=== PATIENT | male | born 1980 | race Caucasian/White ===

== ENCOUNTER 2017-04-12 10:15 | Emergency (ER) | payer OTHER ==
[2017-04-12 10:23] VITALS: BMI 27.8
[2017-04-12] MEDS ORDERED: ZOFRAN INJ 4 MG VIAL IVP ONE (10:26)
[2017-04-12] MEDS ORDERED: NS 1000 ML 1,000 ML IV ONE ×2 (10:26→11:57)
--- NOTE | 2017-04-12 10:28 | DR.N/VMALE ---
HPI - Time Seen Time seen: 10:30 - Primary Care Physician Primary Care Physician: NFD - HPI Comment HPI Comment: VOMITING DECREASE BUT DIARRHEA HAVE INCREASE. ABDOMINAL CRAMPING PRESENT. NO FEVER. MAY HAVE EATING FOOD THAT STARTED SYMTOMS. FEEL WEAK AND DIZZY CURRENTLY. - Complaints Chief Complaint Doctors Comments: N/V/D AND ABDOMINAL PAIN TIMES 3 DAYS. Chief Complaint:: PT C/O SEVERE DIARRHEA WITH NAUSEA AND VOMITTING THAT HAS BEEN GOING ON FOR 2-3 DAYS. PT'S STATES HE HAS WENT MULITPLE TIMES THIS AM ALREADY. - Reviewed Nurses Notes Reviewed: Yes - Source History Provided: Patient - Mode of Arrival Mode of Arrival: Ambulatory - Timing Onset of Chief Complaint: 04/09/17 - Context Onset: Spontaneous Recent: None History of: None - Quality Quality: Bilious - Associated Signs and Symptoms Abdominal Pain Quality: Cramping Abdominal Pain Location: Diffuse Symptoms: Abdominal Pain, Diarrhea, Anorexia PMH - PMH Past Medical History: No Past Surgical History: No - Family History History of Family Medical Conditions: No - Social History Does any household member use tobacco: No Alcohol Use: Rarely Do you use any recreational Drugs:: No Lives With: Family Lives Where: Home - infectious screening In the last 2 months have you had wt loss of >10#?: NO Have you had fever, night sweats or hemotysis?: No Have you traveled outside the country in the last 6 months?: No Isolation: Standard ROS - Review of Systems Constitutional: Weakness, Fatigue. negative: Chills, Fever Eyes: negative: Eye Pain, Discharge ENTM: No Symptoms Reported Respiratoy: No Symptoms Reported Cardiovascular: No Symptoms Reported Gastrointestinal/Abdominal: Abdominal Pain, Diarrhea, Nausea, Vomiting Genitourinary: negative: Dysuria, Frequency, Hematuria Neurological: Weakness Musculoskeletal: No Symptoms Reported Integumentary: No Symptoms Reported Hematologic/Lymphatic: No Symptoms Reported Endocrine: No Symptoms Reported All Other Systems: Reviewed and Negative PE - Vital Signs Vitals: Temperature 98.0 F Pulse Rate 115 Respiratory Rate 22 Blood Pressure [Left Arm] 130/64 Blood Pressure 153/97 O2 Sat by Pulse Oximetry 98 - General Limitations: No Limitations General Appearance: Alert - Head Head Exam: Normal Inspection - Eyes Eye exam: Normal Appearance - ENT ENT Exam: Normal External Ear Exam - Neck Neck Exam: Trachea Midline - Chest Chest Inspection: Symmetric Chest Wall Rise - Respiratory Respiratory Exam: Normal Lung Sounds Bilat Respiratory Exam: Bilateral Clear to Auscultation - Cardiovascular Cardiovascular Exam: Regular Rate, Normal Rhythm, Normal Heart Sounds - Abdominal Exam Abdominal Exam: Normal Bowel Sounds, Soft, Tenderness Abdominal Tenderness: Diffuse - Rectal Rectal Exam: Deferred - Exam: Male: Deferred - Extremities Extremities Exam: Normal Inspection - Back Back Exam: Normal Inspection - Neurologic Neurological Exam: Alert, Oriented X3 - Psychiatric Psychiatric Exam: Normal Affect, Normal Mood - Skin Skin Exam: Normal Color MDM - Additional Information Obtained Additional Information Obtained From: Family - Differential Diagnosis Differential Diagnosis: Considerations may Include:: Bowel Obstruction, Gastroenteritis, Pancreatitis, PUD, Urinary Tract Infection, Urolithiasis Course - Treatment Treatment: SEE ORDERS. IV FLUIDS AND IV PAIN MED AND IV ANTIBIOTICS IN ED. - Reevaluation 1st: Improved - Education/Counseling Education/Counseling: Patient, Family, Education Educated On: Treatment, Diagnosis, Needs for Follow Up ROR - Labs Reviewed Laboratory Results Reviewed?: Yes Result Diagrams: 04/12/17 10:40 04/12/17 10:40 Laboratory: 04/12/17 10:56 Stool - Final WBC 13.1 X10^3/uL (3.6-10.0) H 04/12/17 10:40 RBC 6.34 X10^6/uL (4.7-6.0) H 04/12/17 10:40 Hgb 18.1 g/dL (13.5-18.0) H 04/12/17 10:40 Hct 51.5 % (42.0-54.0) 04/12/17 10:40 MCV 81.3 fL (80.0-100.0) 04/12/17 10:40 MCH 28.6 pg (27.0-34.0) 04/12/17 10:40 MCHC 35.2 g/dL (33.0-35.0) H 04/12/17 10:40 RDW 14.4 % (11.6-16.5) 04/12/17 10:40 Plt Count 298 X10^3/uL (150.0-450.0) 04/12/17 10:40 MPV 8.4 fL (7.4-11.0) 04/12/17 10:40 Neut % 82.8 % (42.0-75.0) H 04/12/17 10:40 Lymph % 7.8 % (21.0-51.0) L 04/12/17 10:40 [place] % 6.7 % (0.0-13.0) 04/12/17 10:40 Eos % 2.4 % (0.9-2.9) 04/12/17 10:40 Baso % 0.3 % (0.2-1.0) 04/12/17 10:40 Neut # 10.9 x10^3/uL (2.2-4.8) H 04/12/17 10:40 Lymph # 1.0 X10^3/uL (1.3-2.9) L 04/12/17 10:40 [place] # 0.9 x10^3/uL (0.3-0.8) H 04/12/17 10:40 Eos # 0.3 x10^3/uL (0.0-0.2) H 04/12/17 10:40 Baso # 0.0 X10^3/uL (0.0-0.1) 04/12/17 10:40 Absolute Nucleated RBC 0.6 /100WBC 04/12/17 10:40 Sodium 136 mmol/L (136-145) 04/12/17 10:40 Corrected Sodium TNP 04/12/17 10:40 Potassium 3.8 mmol/L (3.5-5.1) 04/12/17 10:40 Chloride 99 mmol/L (98-107) 04/12/17 10:40 Carbon Dioxide 24.1 mmol/L (21-32) 04/12/17 10:40 BUN 27 mg/dL (7-18) H 04/12/17 10:40 Creatinine 1.65 mg/dL (0.70-1.30) H 04/12/17 10:40 Est GFR (MDRD) Af Amer > 60 (>60) 04/12/17 10:40 Est GFR (MDRD) Non-Af 50 (>60) L 04/12/17 10:40 Glucose 109 mg/dL (65-99) H 04/12/17 10:40 Calcium 8.9 mg/dL (8.5-10.1) 04/12/17 10:40 Corrected Calcium TNP 04/12/17 10:40 Total Bilirubin 1.00 mg/dL (0.2-1.0) 04/12/17 10:40 AST 13 Units/L (15-37) L 04/12/17 10:40 ALT 30 Units/L (12-78) 04/12/17 10:40 Alkaline Phosphatase 44 Units/L (46-116) L 04/12/17 10:40 Total Protein 9.6 g/dL (6.4-8.2) H 04/12/17 10:40 Albumin 5.0 g/dL (3.4-5.0) 04/12/17 10:40 Globulin 4.6 g/dL (2.5-4.5) H 04/12/17 10:40 Albumin/Globulin Ratio 1.1 Ratio (1.1-2.1) 04/12/17 10:40 Amylase 29 Units/L (25-115) 04/12/17 10:40 Lipase 115 Units/L (73-393) 04/12/17 10:40 Specimen Type Random urine 04/12/17 12:42 Urine Color Yellow (YELLOW) 04/12/17 12:42 Urine Appearance Clear (CLEAR) 04/12/17 12:42 Urine pH 5.0 (5.0 - 8.0) 04/12/17 12:42 Ur Specific [place] 1.015 (1.000-1.030) 04/12/17 12:42 Urine Protein 1+ (NEGATIVE) 04/12/17 12:42 Urine Glucose (UA) Negative (NEGATIVE) 04/12/17 12:42 Urine Ketones Negative (NEGATIVE) 04/12/17 12:42 Urine Occult Blood 3+ (NEGATIVE) 04/12/17 12:42 Urine Nitrite Negative (NEGATIVE) 04/12/17 12:42 Urine Bilirubin Negative (NEGATIVE) 04/12/17 12:42 Urine Urobilinogen Normal (NORMAL) 04/12/17 12:42 Ur Leukocyte Esterase Negative (NEGATIVE) 04/12/17 12:42 Urine RBC 2-3 /HPF (NEGATIVE) 04/12/17 12:42 Urine WBC 0-1 /HPF (NEGATIVE) 04/12/17 12:42 Ur Squamous Epith Cells Negative /HPF (NEGATIVE) 04/12/17 12:42 Amorphous Sediment Trace /HPF (NEGATIVE) 04/12/17 12:42 Urine Bacteria Trace /HPF (NEGATIVE) 04/12/17 12:42 Ur Culture Indicated? No/not indicated 04/12/17 12:42 Stool Description 20g yellow-brown 04/12/17 10:56 Stool for White Cells Positive (NEGATIVE) A 04/12/17 10:56 Stl C. diff Tox B Gene Negative (NEGATIVE) 04/12/17 10:56 Stl C. diff [id number] Negative (NEGATIVE) 04/12/17 10:56 Cryptosporid parvum Ag Negative (NEGATIVE) 04/12/17 10:56 E. histolytica Antigen Negative (NEGATIVE) 04/12/17 10:56 Giardia lamblia Ag Negative (NEGATIVE) 04/12/17 10:56 H. pylori IgG Antibody Negative (NEGATIVE) 04/12/17 10:40 - XRAY XRAY Interpreted by: Radiologist XRAY Findings: REPORT DISCUSS WITH PATIENT AND HIS . - Diagnosis Discharge Problem: Nausea and vomiting in adult patient, Infective diarrhea, Gastroenteritis Abdominal pain Qualifiers: Abdominal location: generalized Qualified Code(s): R10.84 - Generalized abdominal pain - Discharge Plan Disposition: 01 HOME, SELF-CARE Condition: Stable Prescriptions: Ciprofloxacin HCl [CIPRO 500 MG TAB *] 500 mg PO Q12H #20 tab Dicyclomine HCl [Bentyl Cap 10 mg] 10 mg PO TID PRN #15 cap PRN Reason: Diphenoxylate/Atropine [Lomotil] 1 tab PO TID PRN #21 tab PRN Reason: Ondansetron [Zofran ODT 8 mg] 8 mg PO Q8H PRN #12 tab PRN Reason: Nausea/Vomiting - Follow ups/Referrals Follow ups/Referrals: EDWARDO ADAME [STAFF PHYSICIAN] - 2 days NFD,None [Primary Care Provider] - 2 days - Instructions Instructions: Viral Gastroenteritis, Adult, [id number], Nausea and Vomiting, Adult, [id number], Abdominal Pain, Adult, [id number] Additional Instructions: RETURN TO ED IF WORSE.
[2017-04-12] MEDS ORDERED: NS 1000 ML 1,000 ML ONE ×2 (10:30→11:54)
[2017-04-12] MEDS ORDERED: ZOFRAN INJ 4 MG VIAL ONE (10:31)
[2017-04-12] MEDS ORDERED: MORPHINE SULFATE INJ 4 MG ONE (10:32)
[2017-04-12 10:58] LABS: ALANINE AMINOTRANSFERASE 30 Units/L (12-78); ALKALINE PHOSPHATASE 44 Units/L (46-116); AMYLASE 29 Units/L (25-115); ASPARTATE AMINO TRANSFERASE 13 Units/L (15-37); BLOOD UREA NITROGEN 27 mg/dL (7-18); CALCIUM 8.9 mg/dL (8.5-10.1); CARBON DIOXIDE 24.1 mmol/L (21-32); CHLORIDE 99 mmol/L (98-107); CREATININE 1.65 mg/dL (0.70-1.30); LIPASE 115 Units/L (73-393); SODIUM 136 mmol/L (136-145); TOTAL PROTEIN 9.6 g/dL (6.4-8.2); eGFR BLACK RACES > 60 (>60); eGFR NON BLACK RACES 50 (>60)
[2017-04-12 11:02] LABS: BASOPHILS % (AUTO) 0.3 % (0.2-1.0); EOSINOPHILS # (AUTO) 0.3 x10^3/uL (0.0-0.2); EOSINOPHILS % (AUTO) 2.4 % (0.9-2.9); HEMATOCRIT 51.5 % (42.0-54.0); HEMOGLOBIN 18.1 g/dL (13.5-18.0); LYMPHOCYTES % (AUTO) 7.8 % (21.0-51.0); MEAN CORPUSCULAR HEMOGLOBIN 28.6 pg (27.0-34.0); MEAN CORPUSCULAR HGB CONC 35.2 g/dL (33.0-35.0); MEAN CORPUSCULAR VOLUME 81.3 fL (80.0-100.0); MEAN PLATELET VOLUME 8.4 fL (7.4-11.0); MONOCYTES # (AUTO) 0.9 x10^3/uL (0.3-0.8); MONOCYTES % (AUTO) 6.7 % (0.0-13.0); NEUTROPHILS # (AUTO) 10.9 x10^3/uL (2.2-4.8); NEUTROPHILS % (AUTO) 82.8 % (42.0-75.0); PLATELET COUNT 298 X10^3/uL (150.0-450.0); RED BLOOD COUNT 6.34 X10^6/uL (4.7-6.0); RED CELL DISTRIBUTION WIDTH 14.4 % (11.6-16.5); WHITE BLOOD COUNT 13.1 X10^3/uL (3.6-10.0)
--- NOTE | 2017-04-12 11:17 | RAD ---
Examination: Abdomen with PA chest History: Diarrhea, nausea and vomiting Findings: PA chest demonstrates normal heart size with essentially clear lungs. No pleural effusion o r pneumoperitoneum. In the abdomen, supine and upright views demonstrate gas and fluid distention of the colon. Fluid lev els are present. No small bowel dilatation, perforation, mass formation or unusual calcification is n oted. Impression: No acute chest disease demonstrated. Appearance of intestinal gas pattern consistent with diarrhea/enteritis. There is no evidence for obstruction. Reported By:
[2017-04-12] MEDS: MORPHINE SULFATE INJ 4 MG IVP ONE ×2 (11:18→12:37)
[2017-04-12 11:33] LABS: STOOL FOR WBC POSITIVE (NEGATIVE)
[2017-04-12] MEDS ORDERED: CIPRO IV 400 MG PREMIX* 400 MG/200 ML IV.SOLN. IV ONE ×2 (12:03→12:28)
[2017-04-12 12:27] LABS: CRYPTOSPORIDIUM PARVUM ANTIGEN NEGATIVE (NEGATIVE); GIARDIA LAMBLIA ANTIGEN NEGATIVE (NEGATIVE)
[2017-04-12 13:07] LABS: BILIRUBIN,URINE NEGATIVE (NEGATIVE); BLOOD/HEMOGLOBIN,URINE 3+ (NEGATIVE); GLUCOSE, URINE NEGATIVE (NEGATIVE); KETONES,URINE NEGATIVE (NEGATIVE); LEUKOCYTE ESTERASE ,URINE NEGATIVE (NEGATIVE); NITRITES,URINE NEGATIVE (NEGATIVE); PROTEIN,URINE 1+ (NEGATIVE); UROBILINOGEN,URINE NORMAL (NORMAL)
[2017-04-12 13:14] LABS: APPEARANCE,URINE CLEAR (CLEAR); COLOR,URINE YELLOW (YELLOW)
[2017-04-12 13:15] LABS: AMORPHOUS SEDIMENT,UR TRACE /HPF (NEGATIVE); BACTERIA,URINE TRACE /HPF (NEGATIVE); SQUAMOUS EPITHELIAL CELL,UR NEGATIVE /HPF (NEGATIVE)
[2017-04-12] MEDS ORDERED: LOMOTIL PO ONE (13:41)
[2017-04-12] MEDS ORDERED: LOMOTIL ONE (13:49)
[2017-04-12 13:53] VITALS: BP 130/64
== END 2017-04-12 14:08 | disposition home or self-care (01) ==
LOC: ER 10:23
DX: K52.89 Other specified noninfective gastroenteritis and colitis (principal); R11.2 Nausea with vomiting, unspecified; A09 Infectious gastroenteritis and colitis, unspecified; R10.84 Generalized abdominal pain
CPT/HCPCS: 36415; 74022; 80053; 81001; 82150; 83630; 83690; 85025; 86677; 87045; 87328; 87329; 87336; 87427; 87493; 87899; 96365; 96367; 96374; 96375; 99283; A4222; J0744; J2270; J2405